=== PATIENT | female | born 1970 | race Caucasian/White ===

== ENCOUNTER 2018-06-30 09:41 | Day surgery (SDC) | payer OTHER ==
[~2018-06-30] VITALS: Ht 157.5 cm; Wt 62.6 kg
[2018-06-30 10:48] VITALS: Ht 157.5 cm; Wt 62.6 kg
[2018-06-30 11:14] VITALS: BP 98/59; PULSE 65; RESP 20
[2018-06-30] MEDS ORDERED: LIDOCAINE 4% SOLUTION 50 ML BTL ONE (11:32)
[2018-06-30 12:46] VITALS: BP 102/56; PULSE 81; RESP 18
[2018-06-30] MEDS ORDERED: FENTAnyl 50 MCG/ML VIAL ONE (13:02)
[2018-06-30] MEDS ORDERED: MIDAZOLAM 1 MG/ML 2 ML INJ ONE ×2 (13:02)
== END 2018-06-30 15:00 | disposition home or self-care (01) ==
LOC: GIL 09:41
PROVIDERS: ATTEND Internal Medicine Gastroenterology
DX: Z12.11 Encounter for screening for malignant neoplasm of colon (principal); K29.30 Chronic superficial gastritis without bleeding; R10.13 Epigastric pain
CPT/HCPCS: 43239; 45378; 88305; 88312; J2250; J3010; Z7610